=== PATIENT | female | born 1980 | race Caucasian/White ===

== ENCOUNTER 2017-03-13 00:13 | Emergency (ER) | payer BC, OTHER ==
--- NOTE | 2017-03-13 00:15 | PDOC ---
History of Present Illness - General Chief Complaint: Pain, Acute Stated Complaint: L WRIST PAIN Time Seen by Provider: 03/13/17 00:14 History Source: Patient Exam Limitations: Other (mentally challenged) - History of Present Illness Initial Comments: 03/13/17 00:18 This is a 36-year-old mentally challenged female with seizure disorder who had a seizure this afternoon and when she fell at the onset of her seizure she fell onto her outstretched left hand resulting in injury to her left wrist. Patient comes in complaining of pain to the left wrist. Patient denies any other injury did not hit her head and denies any other complaints. PAST MEDICAL HISTORY: As per history of present illness PAST SURGICAL HISTORY: no significant history FAMILY HISTORY: no pertinant history SOCIAL HISTORY: Pt lives with family and is employed. MEDICATIONS: reviewed ALLERGIES: As per nursing notes Review of Systems General: No fevers or chills, no weakness, no weight loss HEENT: No change in vision. No sore throat,. No ear pain CardioVascular: No chest pain or shortness of breath Respiratory:No cough, or wheezing. Gastrointestinal: no nausea, vomitting, diarrhea or constipation, No rectal bleeding Genitourinary: No dysuria, hematuria, or frequency Musculoskeletal: Left wrist pain post fall Neurologic: No headache, vertigo, dizziness or loss of consciousness Psychiatric: nor depression Skin: No rashes or easy bruising Endocrine: no increased thirst or abnormal weight change Allergic: no skin or latex allergy All other systems reviewed and normal GENERAL: The patient is awake, alert, and fully oriented, in no acute distress. HEAD: Normal with no signs of trauma. EYES: Pupils equal, round and reactive to light, extraocular movements intact, sclera anicteric, conjunctiva clear. EXTREMITIES: Left wrist there is swelling, deformity and tenderness on palpation. There is decreased range of motion secondary to pain and swelling. There is neurovascular distal intact. NEUROLOGICAL: Normal speech, normal gait. PSYCH: Normal mood, normal affect. SKIN: Warm, Dry, normal turgor, no rashes or lesions noted. 03/13/17 01:29 Wrist x-ray questionable ulnar styloid fracture nondisplaced Assessment and plan: This is a 36-year-old female who comes in status post fall on outstretched hand. Patient has a questionable ulnar styloid fracture. Patient put in a splint and will follow-up with an orthopedist. Past History - Past Medical History Allergies/Adverse Reactions: Allergies Allergy/AdvReac Type Severity Reaction Status Date / Time carbamazepine [From Tegretol] Allergy Severe Hives Verified 08/01/15 02:02 Penicillins Allergy Severe Rash Verified 08/01/15 02:02 Home Medications: Ambulatory Orders Clonazepam 0.75 mg PO HS 10/07/13 Clonazepam [Klonopin] 0.75 mg PO AM 10/07/13 Divalproex [Depakote -] 250 mg PO DAILY 10/07/13 Divalproex [Depakote -] 500 mg PO BID 10/07/13 LamoTRIgine [LaMICtal] 100 mg PO AM 10/07/13 LamoTRIgine [LaMICtal] 150 mg PO HS 10/07/13 Levetiracetam [Keppra] 1,000 mg PO AM 10/07/13 Levetiracetam [Keppra] 1,500 mg PO HS 10/07/13 Levetiracetam [Keppra] 500 mg PO DAILY 10/07/13 Ranitidine [Zantac -] 150 mg PO BID 10/07/13 Risperidone [Risperdal] 1 mg PO BID 10/07/13 Verapamil HCl 80 mg PO BID 10/07/13 Depakote - 500 mg PO HS 04/15/14 Anemia: No Asthma: No Cancer: No Cardiac Disorders: No CVA: No COPD: No CHF: No Dementia: Yes Diabetes: No GI Disorders: Yes (ACID REFLUX) Disorders: No HTN: No Hypercholesterolemia: No Liver Disease: No Seizures: Yes Thyroid Disease: No - Surgical History Abdominal Surgery: No Appendectomy: No Cardiac Surgery: No Cholecystectomy: No Lung Surgery: No Neurologic Surgery: Yes (PARTIAL LEFT TEMPORAL LOBE RESECTION) Orthopedic Surgery: Yes (BRANDON. ANKLE FRACTURE, RT FEMUR FX) - Immunization History Immunization Up to Date: Yes - Psycho/Social/Smoking Cessation Hx Anxiety: No Suicidal Ideation: No Smoking Status: No Smoking History: Never smoked Have you smoked in the past 12 months: No Number of Cigarettes Smoked Daily: 0 Hx Alcohol Use: No Drug/Substance Use Hx: No Substance Use Type: None Hx Substance Use Treatment: No *DC/Admit/Observation/Transfer Diagnosis at time of Disposition: Fracture of left wrist Qualifiers: Encounter type: initial encounter Fracture type: closed Qualified Code(s): S62.102A - Fracture of unspecified carpal bone, left wrist, initial encounter for closed fracture - Discharge Dispostion Disposition: HOME Condition at time of disposition: Good - Patient Instructions Additional Instructions: Wear the splint in tell you see an orthopedist. If you need an orthopedist call Dr. Agustin at [phone] this morning for an appointment. Tylenol or Motrin as needed for pain Return to the emergency department immediately with ANY new, persistent or worsening symptoms. Continue any medications as previously prescribed by your physician. You should follow up with your primary doctor as soon as possible regarding today's emergency department visit. . Please make sure your doctor reviews the results of your emergency evaluation. Thank you for coming to the Emergency Department today for your care. It was a pleasure to see you today. Please note that your evaluation is INCOMPLETE until you follow-up with your doctor.
[2017-03-13] MEDS ORDERED: IBUPROFEN 600 MG TABLET (FP) PO ONE ×2 (00:17→00:21)
[2017-03-13 00:19] VITALS: BP 131/88; PULSE 88; TEMP 97.8; BMI 25.4
== END 2017-03-13 01:42 | disposition home or self-care (01) ==
LOC: FER 00:13
PROC: 2W3FX1Z Immobilization of Left Hand using Splint (ICD-10-PCS; principal; 2017-03-13)
DX: S62.102A Fracture of unspecified carpal bone, left wrist, initial encounter for closed fracture (principal); W18.39XA Other fall on same level, initial encounter; Y93.89 Activity, other specified; Y92.9 Unspecified place or not applicable; K21.9 Gastro-esophageal reflux disease without esophagitis; F03.90 Unspecified dementia, unspecified severity, without behavioral disturbance, psychotic disturbance, mood disturbance, and anxiety; F79 Unspecified intellectual disabilities
CPT/HCPCS: 73110-TC-LT; 99283-25

== ENCOUNTER 2017-04-30 23:24 | Emergency (ER) | payer BC, OTHER ==
[2017-04-30 23:29] VITALS: BP 130/86; PULSE 18; TEMP 99; BMI 31.1
--- NOTE | 2017-04-30 23:38 | PDOC ---
History of Present Illness - General Chief Complaint: Pain Stated Complaint: LEFT ABD PAIN History Source: Patient Exam Limitations: Clinical Condition - History of Present Illness Travel History: No Initial Comments: 04/30/17 23:33 36y F hx of MR, seizure disorder presents with abdminal pain. Per brother, the pt started complaining of abdominal pain approx 4 hrs ago. Earlier in the day the pt was doing well, eating as usual, last had julia around 4-5 pm. Pt localizes pain to her L UQ/flank and that it is burning in nature. No associated fever/chills, nausae/vomiting, chest pain, cough, new diarrhea/melena /bpr, dysuria/foul smelling urine. History provided from brother as pts history is limited due to MR. Past History - Past Medical History Allergies/Adverse Reactions: Allergies Allergy/AdvReac Type Severity Reaction Status Date / Time carbamazepine [From Tegretol] Allergy Severe Hives Verified 08/01/15 02:02 Penicillins Allergy Severe Rash Verified 08/01/15 02:02 Home Medications: Ambulatory Orders Clonazepam 0.75 mg PO HS 10/07/13 Clonazepam [Klonopin] 0.75 mg PO AM 10/07/13 Divalproex [Depakote -] 250 mg PO DAILY 10/07/13 Divalproex [Depakote -] 500 mg PO BID 10/07/13 LamoTRIgine [LaMICtal] 100 mg PO AM 10/07/13 LamoTRIgine [LaMICtal] 150 mg PO HS 10/07/13 Levetiracetam [Keppra] 1,000 mg PO AM 10/07/13 Levetiracetam [Keppra] 1,500 mg PO HS 10/07/13 Levetiracetam [Keppra] 500 mg PO DAILY 10/07/13 Ranitidine [Zantac -] 150 mg PO BID 10/07/13 Risperidone [Risperdal] 1 mg PO BID 10/07/13 Verapamil HCl 80 mg PO BID 10/07/13 Depakote - 500 mg PO HS 04/15/14 Anemia: No Asthma: No Cancer: No Cardiac Disorders: No CVA: No COPD: No CHF: No Dementia: Yes Diabetes: No GI Disorders: Yes (ACID REFLUX) Disorders: No HTN: No Hypercholesterolemia: No Liver Disease: No Seizures: Yes Thyroid Disease: No - Surgical History Abdominal Surgery: No Appendectomy: No Cardiac Surgery: No Cholecystectomy: No Lung Surgery: No Neurologic Surgery: Yes (PARTIAL LEFT TEMPORAL LOBE RESECTION) Orthopedic Surgery: Yes (BRANDON. ANKLE FRACTURE, RT FEMUR FX) - Immunization History Immunization Up to Date: Yes - Psycho/Social/Smoking Cessation Hx Anxiety: No Suicidal Ideation: No Smoking Status: No Smoking History: Never smoked Have you smoked in the past 12 months: No Number of Cigarettes Smoked Daily: 0 Hx Alcohol Use: No Drug/Substance Use Hx: No Substance Use Type: None Hx Substance Use Treatment: No Review of Systems - Review of Systems Able to Perform ROS?: No (due to MR) *Physical Exam - Vital Signs Last Vital Signs Temp Pulse Resp BP Pulse Ox 99 F 18 L 18 130/86 100 04/30/17 23:26 04/30/17 23:26 04/30/17 23:26 04/30/17 23:26 04/30/17 23:26 - Physical Exam Comments: 04/30/17 23:37 GENERAL: The patient is awake, alert Nontoxic - in no acute distress. HEAD: Normocephalic, atraumatic. EYES: extraocular movements intact, sclera anicteric, conjunctiva clear. ENT: Normal voice, Moist mucous membranes. NECK: Normal range of motion, supple LUNGS: Breath sounds equal, clear to auscultation bilaterally. No wheezes, no rhonchi, no rales. HEART: Regular rate and rhythm, normal S1 and S2 without murmur, rub or gallop. ABDOMEN: Soft, mild diffuse abd pain on palpation, normoactive bowel sounds. No guarding, no rebound. L sided CVA tenderness EXTREMITIES: Normal range of motion, no edema. No clubbing or cyanosis. No cords, erythema, or tenderness. NEUROLOGICAL: No facial assymetry, Normal speech, moving all 4 extremities spontaneously and symmetrically PSYCH: Normal mood, normal affect. SKIN: Warm, Dry, normal turgor, Heart Score/ECG Review - ECG Impressions Comment:: 05/01/17 00:52 Twelve-lead EKG was performed and reviewed by me. There is normal sinus rhythm with a normal rate. Rate of 73 The axis is normal. The intervals are normal. There is normal R wave progression Nonspecific ST-T wave changes ED Treatment Course - LABORATORY CBC & Chemistry Diagram: 04/30/17 23:55 04/30/17 23:55 Medical Decision Making - Medical Decision Making 04/30/17 23:38 36y F presenting with abdominal pain, +CVA tenderness and tendenress on exam pt atherwise well appearing in no distress history limited differential includes uti, gerd, pancreatitis, consider infectius process such as diverticulitis/appendicitis will check UA, labs, ekg will reassess, if no clear diagnosis and pt still in pain, consider CT abdomen 05/01/17 02:32 pts labs reviewed noted for mild leukocytosis ct abd obtained due to persisteent pain. ct without pathology pt appears well. abd soft will dc wiht pmd fu tomorrow for reassessment. Findings: Wasn't attenuation is noted in the mid left lung bases indicative of air trapping. Correlate for asthma or COPD exacerbation. The upper abdominal viscera are normal unenhanced appearance. The adrenal glands are unremarkable. The kidneys have a normal unenhanced appearance. No calculi are seen. There is no evidence of urinary tract instruction. The gastrointestinal tract does not appear obstructed. No thickened or dilated bowel is seen. The appendix has a normal appearance. There is no mesenteric infiltration or free fluid. The uterus is anteverted and is normal unenhanced appearance. Both adnexa are unremarkable. The urinary bladder is unremarkable. No abdominal or pelvic adenopathy is seen. No acute osseous abnormalities are identified. Impression: No urinary tract calculi or evidence of urinary tract of traction seen. No inflammatory process identified in the abdomen or pelvis. No abdominal mass, adenopathy or collection seen. Mild air trapping noted in the lung bases. Correlate for asthma exacerbation. THIS DOCUMENT HAS BEEN ELECTRONICALLY SIGNED Danny Espinal M.D. 05/01/2017 02:26 LENORE Seaman Please call [facility] [phone] ([phone]) with questions. *DC/Admit/Observation/Transfer Diagnosis at time of Disposition: Abdominal pain Qualifiers: Abdominal location: left upper quadrant Qualified Code(s): R10.12 - Left upper quadrant pain - Discharge Dispostion Disposition: HOME Condition at time of disposition: Improved Admit: No - Referrals Referrals: Danny Kirk MD [Staff Physician] - - Patient Instructions Printed Discharge Instructions: DI for Abdominal Pain-Adult Additional Instructions: Return to the emergency department immediately with ANY new, persistent or worsening symptoms including worsening abdominal pain, fevers, inability to tolerate oral intake, chest pain, shortness of breath or any other concerns. Stay well hydrated. You MUST call and follow up with your doctor tomorrow for reevaluation of your symptoms. Your emergency department visit is not complete without a followup with your doctor for reevaluation. Please make sure your doctor reviews the results of your emergency evaluation. Print Language: MOZAMBICAN
[2017-04-30] MEDS ORDERED: MAG HYDROX/AL HYDROX/SIMETH 355 ML ORAL.SUSP PO ONE (23:40)
[2017-04-30] MEDS ORDERED: FAMOTIDINE 20 MG/50 ML IVPB 20 MG in PREMIX 50 IVPB ONE (23:40)
[2017-04-30] MEDS ORDERED: MAG HYDROX/AL HYDROX/SIMETH 30 ML UNIT-DOSE CUP ONE (23:45)
[2017-04-30] MEDS ORDERED: FAMOTIDINE 20 MG/50 ML IVPB 50 ML IVPB ONE (23:45)
[2017-05-01 00:49] LABS: MCH 31.9 pg (25.7-33.7); MCHC 35.1 g/dl (32.0-36.0); MEAN CELL VOLUME 90.6 fl (80-96); MEAN PLT VOLUME 8.7 fl (7.5-11.1); PLATELET COUNT 227 K/MM3 (134-434); RDW 13.2 % (11.6-15.6); WHITE BLOOD COUNT 11.3 K/mm3 (4.0-10.0)
[2017-05-01 00:53] LABS: URINE APPEARANCE CLEAR; URINE BILIRUBIN NEGATIVE (NEGATIVE); URINE BLOOD 1+ (NEGATIVE); URINE COLOR LTYELLOW; URINE GLUCOSE (UA) NEGATIVE (NEGATIVE); URINE KETONE TRACE (NEGATIVE); URINE LEUK ESTERASE TRACE (NEGATIVE); URINE NITRITE NEGATIVE (NEGATIVE); URINE PROTEIN NEGATIVE (NEGATIVE); URINE UROBILINOGEN NEGATIVE mg/dL (0.2-1.0)
[2017-05-01 01:14] LABS: ALBUMIN 3.6 g/dl (3.4-5.0); ANION GAP 11 (8-16); CALCIUM 9.9 mg/dL (8.5-10.1); CO2 29 mmol/L (21-32); GLUCOSE,RANDOM 89 mg/dL (74-106)
[2017-05-01 01:18] LABS: ALK PHOS 43 U/L (45-117); BILIRUBIN,TOTAL 0.4 mg/dL (0.2-1.0); CREATININE 0.6 mg/dL (0.55-1.02); SGOT/AST 14 U/L (15-37); SGPT/ALT 24 U/L (12-78); TOT PROT 7.8 g/dl (6.4-8.2)
[2017-05-01 01:35] LABS: URINE BACTERIA RARE /hpf (NONE SEEN); URINE MUCUS RARE; URINE RBC 2 /hpf (0-3); URINE WBC 6 /hpf (3-5)
[2017-05-01] MEDS ORDERED: morphine CARPU-JECT 2 MG/1 ML DISP.SYRIN IVPUSH ONE (01:50)
[2017-05-01] MEDS ORDERED: morphine CARPU-JECT 2 MG/1 ML DISP.SYRIN ONE (01:51)
--- NOTE | 2017-05-01 08:42 | EKG ---
Test Reason : Blood Pressure : / mmHG Vent. Rate : 073 BPM Atrial Rate : 073 BPM P-R Int : 150 ms QRS Dur : 080 ms QT Int : 396 ms P-R-T Axes : 109 030 129 degrees QTc Int : 436 ms SINUS RHYTHM NONSPECIFIC ST AND T WAVE ABNORMALITY WHEN COMPARED WITH ECG OF 07-OCT-2013 14:35, VENT. RATE HAS DECREASED BY [address] abnormalities in I and aVL has improved Confirmed by ARACELI SURESH MD ([id number]) on 05/01/2017 8:42:19 AM Referred By: MD MANZANARES Confirmed By:ARACELI SURESH MD
== END 2017-05-01 02:47 | disposition home or self-care (01) ==
LOC: FER 23:24
PROC: 3E033GC Introduction of Other Therapeutic Substance into Peripheral Vein, Percutaneous Approach (ICD-10-PCS; principal; 2017-04-30)
PROC: 3E033NZ Introduction of Analgesics, Hypnotics, Sedatives into Peripheral Vein, Percutaneous Approach (ICD-10-PCS; 2017-04-30)
DX: R10.12 Left upper quadrant pain (principal)
CPT/HCPCS: 36415; 74176-TC; 80053; 81003; 81015; 83690; 85025; 87086; 93005; 99283-25

== ENCOUNTER 2017-10-25 11:56 | Emergency (ER) | payer BC, OTHER ==
[2017-10-25 12:06] VITALS: BP 127/90; PULSE 94; TEMP 99; BMI 36.6
--- NOTE | 2017-10-25 12:19 | PDOC ---
History of Present Illness - General Chief Complaint: Pain, Acute Stated Complaint: RIGHT KNEE PAIN Time Seen by Provider: 10/25/17 12:19 History Source: Patient Exam Limitations: No Limitations - History of Present Illness Initial Comments: 37 yo F history seizure d/o with history of temporal lobe resection, presenting with RLE pain and inability to walk after a fall. No head injury. No other injuries. She c/o severe sharp pain to R thigh, knee, and lower leg. Unable to move it due to pain. Past History - Past Medical History Allergies/Adverse Reactions: Allergies Allergy/AdvReac Type Severity Reaction Status Date / Time carbamazepine [From Tegretol] Allergy Severe Hives Verified 10/25/17 11:57 Penicillins Allergy Severe Rash Verified 10/25/17 11:57 Home Medications: Ambulatory Orders Clonazepam 0.75 mg PO TID 10/07/13 Divalproex [Depakote -] 250 mg PO DAILY 10/07/13 Divalproex [Depakote -] 500 mg PO BID 10/07/13 LamoTRIgine [LaMICtal] 50 mg PO AM 10/07/13 LamoTRIgine [LaMICtal] 50 mg PO HS 10/07/13 Levetiracetam [Keppra] 1,000 mg PO DAILY 10/07/13 Levetiracetam [Keppra] 1,500 mg PO HS 10/07/13 Levetiracetam [Keppra] 500 mg PO DAILY 10/07/13 Ranitidine [Zantac -] 150 mg PO BID 10/07/13 Risperidone [Risperdal] 1 mg PO BID 10/07/13 Verapamil HCl 80 mg PO TID 10/07/13 Anemia: No Asthma: No Cancer: No Cardiac Disorders: No CVA: No COPD: No CHF: No DVT: No Dementia: Yes Diabetes: No GI Disorders: Yes (ACID REFLUX) Disorders: No HTN: No Hypercholesterolemia: No Liver Disease: No Seizures: Yes Thyroid Disease: No - Surgical History Abdominal Surgery: No Appendectomy: No Cardiac Surgery: No Cholecystectomy: No Lung Surgery: No Neurologic Surgery: Yes (PARTIAL LEFT TEMPORAL LOBE RESECTION) Orthopedic Surgery: Yes (BRANDON. ANKLE FRACTURE, RT FEMUR FX) - Immunization History Immunization Up to Date: Yes - Suicide/Smoking/Psychosocial Hx Smoking Status: No Smoking History: Never smoked Have you smoked in the past 12 months: No Number of Cigarettes Smoked Daily: 0 Hx Alcohol Use: No Drug/Substance Use Hx: No Substance Use Type: None Hx Substance Use Treatment: No Review of Systems - Review of Systems Able to Perform ROS?: Yes Comments:: GENERAL/CONSTITUTIONAL: No fever or chills. No weakness. HEAD, EYES, EARS, NOSE AND THROAT: No change in vision. No ear pain or discharge. No sore throat. CARDIOVASCULAR: No chest pain or shortness of breath. RESPIRATORY: No cough, wheezing, or hemoptysis. GASTROINTESTINAL: No nausea, vomiting, diarrhea or constipation. GENITOURINARY: No dysuria, frequency, or change in urination. MUSCULOSKELETAL: +RLE pain. No neck or back pain. SKIN: No rash NEUROLOGIC: No headache, vertigo, loss of consciousness, or change in strength/ sensation. ENDOCRINE: No increased thirst. No abnormal weight change. HEMATOLOGIC/LYMPHATIC: No anemia, easy bleeding, or history of blood clots. ALLERGIC/IMMUNOLOGIC: No hives or skin allergy. *Physical Exam - Vital Signs Last Vital Signs Temp Pulse Resp BP Pulse Ox 99.0 F 94 H 17 127/90 100 10/25/17 11:57 10/25/17 11:57 10/25/17 11:57 10/25/17 11:57 10/25/17 11:57 - Physical Exam Comments: GENERAL: Awake, alert, and fully oriented, in no acute distress HEAD: No signs of trauma EYES: PERRLA, EOMI, sclera anicteric, conjunctiva clear ENT: Auricles normal inspection, hearing grossly normal, nares patent, oropharynx clear without exudates. Moist mucosa NECK: Normal ROM, supple, no lymphadenopathy, JVD, or masses LUNGS: Breath sounds equal, clear to auscultation bilaterally. No wheezes, and no crackles HEART: Regular rate and rhythm, normal S1 and S2, no murmurs, rubs or gallops ABDOMEN: Soft, nontender, normoactive bowel sounds. No guarding, no rebound. No masses EXTREMITIES: +Tenderness to R distal femur, R knee, and R proximal lower leg. RLE externally rotated. Remainder of extremities with normal range of motion, no edema. No clubbing or cyanosis. No cords, erythema, or tenderness NEUROLOGICAL: Cranial nerves II through XII grossly intact. Normal speech, normal gait SKIN: Warm, Dry, normal turgor, no rashes or lesions noted. Procedures - Splinting Pre-Proc Neuro Vasc Exam: normal Pre-Made Type: knee immobilizer Post-Proc Neuro Vasc Exam: unchanged from pre-exam Complications: No Medical Decision Making - Medical Decision Making 10/25/17 13:58 Dr. Campos director telecommunications for ortho. Paged service, awaiting callback from DESI Jeter. 10/25/17 14:26 Case d/w DESI Jeter, who discussed with Dr. Urban. No operative management at this time. Will discuss with PMD, as patient has difficulty ambulating at baseline, cannot walk with crutches. 10/25/17 14:50 Initial plan was for admission, but then patient's brother states that he usually assists her with transfers and has done it in the past with prior injuries. Able to manage it at home. Will plan for discharge home. *DC/Admit/Observation/Transfer Diagnosis at time of Disposition: Fracture of proximal end of right tibia Qualifiers: Encounter type: initial encounter Fracture type: closed Fracture morphology: unspecified fracture morphology Qualified Code(s): S82.101A - Unspecified fracture of upper end of right tibia, initial encounter for closed fracture - Discharge Dispostion Disposition: HOME Condition at time of disposition: Stable Admit: No - Referrals - Patient Instructions Printed Discharge Instructions: DI for Shinbone Fracture - Post Discharge Activity
== END 2017-10-25 15:37 | disposition home or self-care (01) ==
LOC: FER 11:56
DX: S82.101A Unspecified fracture of upper end of right tibia, initial encounter for closed fracture (principal); W18.39XA Other fall on same level, initial encounter; Y93.89 Activity, other specified; Y92.9 Unspecified place or not applicable; F03.90 Unspecified dementia, unspecified severity, without behavioral disturbance, psychotic disturbance, mood disturbance, and anxiety; K21.9 Gastro-esophageal reflux disease without esophagitis
CPT/HCPCS: 73523-TC-FY; 73552-TC-RT-FY; 73562-TC-RT-FY; 73590-TC-RT-FY; 99283-25

== ENCOUNTER 2019-04-22 20:12 | Emergency (ER) | payer BC, OTHER ==
--- NOTE | 2019-04-22 20:27 | PDOC ---
Documentation entered by Roma Amador SCRIBE, acting as scribe for Joseph Madrigal MD. Joseph Madrigal MD: This documentation has been prepared by the miriam, Roma Amador SCRIBE, under my direction and personally reviewed by me in its entirety. I confirm that the documentation accurately reflects all work, treatment, procedures, and medical decision making performed by me. Attending Attestation - Resident Resident Name: Chance Espana - ED Attending Attestation I have performed the following: I have examined & evaluated the patient, The case was reviewed & discussed with the resident, I agree w/resident's findings & plan, Exceptions are as noted - HPI HPI: 04/22/19 20:59 The patient is a 38-year-old female with MR, refractory seizure disorder s/p temporal lobe resection, and multiple orthopedic surgeries (LT tib-fib and RT femur fractures), who BIBA s/p fall. Mother is at bedside providing history. She reports that the patient fell after experiencing a seizure 2 hours prior to presentation. She is now complaining of RT femur, RT hip, and RT knee pain. HPI is limited due to patients clinical condition. Allergies: Carbamazepine, penicillins. PCP: Dr. Mark - Physicial Exam PE: 04/22/19 20:59 agree with exam as documented by resident - Medical Decision Making 04/22/19 21:02 R sided pain after seizure/fall analgesia, xr dispo per clinical course 04/22/19 23:11 XR shows R sided intertrochanteric fx at fem neck contacted ortho 04/23/19 01:20 Details of dispo recorded in resident note For transfer to [facility]
[2019-04-22 20:47] VITALS: BMI 38.6
--- NOTE | 2019-04-22 20:49 | PDOC ---
History of Present Illness - General Chief Complaint: Pain, Acute Stated Complaint: SEIZURE Time Seen by Provider: 04/22/19 20:16 History Source: Patient Exam Limitations: No Limitations - History of Present Illness Initial Comments: 38 yo F PMH seizure disorder s/p temporal lobe resection, MR,multiple orthopedic surgeries including L tib-fib and R femur fracture, all corrected by Dr. Ordonez, p/w fall. Per mom, fell following a seizure around 2 hours ago, did not hit her head. Complaining of R femur pain, R hip pain, R knee pain. Per EMS , she got 50 of fetanyl X2. Denies CP, abdominal pain. ROS limited / MR 04/22/19 20:48 Past History - Past Medical History Allergies/Adverse Reactions: Allergies Allergy/AdvReac Type Severity Reaction Status Date / Time carbamazepine [From Tegretol] Allergy Severe Hives Verified 04/22/19 20:48 Penicillins Allergy Severe Rash Verified 04/22/19 20:48 Home Medications: Ambulatory Orders Clonazepam 0.75 mg PO BID 10/07/13 Divalproex [Depakote -] 250 mg PO DAILY 10/07/13 Divalproex [Depakote -] 500 mg PO BID 10/07/13 LamoTRIgine [LaMICtal] 50 mg PO AM 10/07/13 LamoTRIgine [LaMICtal] 50 mg PO HS 10/07/13 Levetiracetam [Keppra] 1,000 mg PO AM 10/07/13 Levetiracetam [Keppra] 1,500 mg PO HS 10/07/13 Levetiracetam [Keppra] 500 mg PO DAILY 10/07/13 Ranitidine [Zantac -] 150 mg PO BID 10/07/13 Risperidone [Risperdal] 1 mg PO DAILY 10/07/13 Verapamil HCl 80 mg PO TID 10/07/13 Anemia: No Asthma: No Cancer: No Cardiac Disorders: No CVA: No COPD: No CHF: No DVT: No Dementia: Yes Diabetes: No GI Disorders: Yes (ACID REFLUX) Disorders: No HTN: No Hypercholesterolemia: No Liver Disease: No Seizures: Yes Thyroid Disease: No Other medical history: aiyana-gastaut syndrome, - Surgical History Abdominal Surgery: No Appendectomy: No Cardiac Surgery: No Cholecystectomy: No Lung Surgery: No Neurologic Surgery: Yes (PARTIAL LEFT TEMPORAL LOBE RESECTION) Orthopedic Surgery: Yes (BRANDON. ANKLE FRACTURE, RT FEMUR FX) - Immunization History Immunization Up to Date: Yes - Suicide/Smoking/Psychosocial Hx Smoking Status: No Smoking History: Never smoked Have you smoked in the past 12 months: No Number of Cigarettes Smoked Daily: 0 Hx Alcohol Use: No Drug/Substance Use Hx: No Substance Use Type: None Hx Substance Use Treatment: No Review of Systems - Review of Systems Able to Perform ROS?: No (limited by MR) *Physical Exam - Vital Signs Last Vital Signs Temp Pulse Resp BP Pulse Ox 98.4 F 125/70 97 04/22/19 20:27 04/22/19 20:27 04/22/19 20:27 - Physical Exam General Appearance: Yes: Nourished, Moderate Distress HEENT: positive: EOMI, SARBJIT, Normal ENT Inspection, Normal Voice, Symmetrical Neck: positive: Trachea midline, Normal Thyroid, Supple Respiratory/Chest: positive: Lungs Clear, Normal Breath Sounds. negative: Chest Tender, Respiratory Distress, Accessory Muscle Use Cardiovascular: positive: Regular Rhythm, Regular Rate Gastrointestinal/Abdominal: positive: Normal Bowel Sounds, Soft. negative: Tender Musculoskeletal: negative: CVA Tenderness Extremity: positive: Other (slightly externally rotated and shortened) Integumentary: positive: Normal Color, Dry, Warm Neurologic: positive: fire support man II-XII NML intact, Fully Oriented, Alert, Normal Mood/ Affect, Normal Response, Motor Strength 5/5 ED Treatment Course - LABORATORY CBC & Chemistry Diagram: 04/22/19 23:38 04/22/19 23:38 - RADIOLOGY Radiology Studies Ordered: Category Date Time Status FOOT-RIGHT [RAD] Stat Radiology 04/22/19 20:46 Ordered HIP & PELVIS-RIGHT [RAD] Stat Radiology 04/22/19 20:46 Ordered KNEE 2 POS-RIGHT [RAD] Stat Radiology 04/22/19 20:47 Ordered LEG TIB/FIB-RIGHT [RAD] Stat Radiology 04/22/19 20:46 Ordered Medical Decision Making - Medical Decision Making X rays reviewed, appears to have R intertrochanteric hip fracture. 04/22/19 22:[address] Ordonez, he stated that he was fine with the patient seeing the orthopedist extrusion operator or going to [facility], as desired by the mom. 04/22/19 22:[address] Mcconnell, orthopedist extrusion operator. Requested pre-op labs, will plan for operation tomorrow. 04/22/19 22:[address] Mcconnell, who states that upon further review of the images, he believe it is more extensive. He recommends transfer to either [facility] or [facility]. 04/22/19 23:[address] Mcconnell, family would like patient to see Dr. Sharma at [place]. 04/22/19 23:[address] Joseph, orthopedist extrusion operator at [place]. States that the patient has a femoral neck fracture into a intertronchanteric fracture, with difficult anatomy. He actually recommends that the patient have a full hip replacement instead of getting an internal fixation, which would be likely to fail. Recommends that she be transferred to [facility]. 04/23/19 00:01 Patient signed out to Dr. Bojorquez. 04/23/19 01:[address] Louis, they will accept patient to [facility]. 04/23/19 01:17 *DC/Admit/Observation/Transfer - Referrals Referrals: Kianna Mark MD [Primary Care Provider] - - Patient Instructions - Post Discharge Activity
[2019-04-22] MEDS ORDERED: morphine CARPU-JECT 4 MG/1 ML DISP.SYRIN IVPUSH ONE (22:40)
[2019-04-22] MEDS ORDERED: morphine SULFATE 4 MG/ML VIAL ONE (22:54)
[2019-04-22 23:46] LABS: BASO % 0.5 % (0-2.0); EOS % 0.1 % (0-4.5); HEMATOCRIT 37.2 % (32.4-45.2); HEMOGLOBIN 12.7 GM/dL (10.7-15.3); MCH 31.2 pg (25.7-33.7); MCHC 34.2 g/dl (32.0-36.0); MEAN CELL VOLUME 91.2 fl (80-96); MEAN PLT VOLUME 7.7 fl (7.5-11.1); NEUT % 71.4 % (42.8-82.8); PLATELET COUNT 235 K/MM3 (134-434); RBC 4.08 M/mm3 (3.60-5.2); RDW 13.8 % (11.6-15.6); WHITE BLOOD COUNT 14.6 K/mm3 (4.0-10.0)
[2019-04-23] MEDS ORDERED: morphine CARPU-JECT 4 MG/1 ML DISP.SYRIN IVPUSH ONE (00:10)
[2019-04-23 00:13] LABS: ALBUMIN 3.4 g/dl (3.4-5.0); BILIRUBIN,TOTAL 0.2 mg/dL (0.2-1); CALCIUM 9.1 mg/dL (8.5-10.1); CREATININE 0.7 mg/dL (0.55-1.3); POTASSIUM 3.9 mmol/L (3.5-5.1); TOT PROT 7.3 g/dl (6.4-8.2)
[2019-04-23 00:23] LABS: INR 1.02 (0.83-1.09)
--- NOTE | 2019-04-23 00:56 | PDOC ---
*Physical Exam - Vital Signs Last Vital Signs Temp Pulse Resp BP Pulse Ox 98.4 F 125/70 97 04/22/19 20:27 04/22/19 20:27 04/22/19 20:27 - Physical Exam Comments: 04/24/19 23:53 Gen: Alert, NAD, comfortable-appearing. HEENT: PERRL, EOMI, MMM, NCAT. CV: Regular rate and rhythm. No murmurs, rubs, or gallops. PULM: No resp distress. CTAB, no wheezes, rales, or rhonchi. ABD: soft, NT/ND, no rebound tenderness or guarding MSK: 2+ pulses in all extremities. RLE: Slightly externally rotated and shortened. TTP of hip. 2+ pulses. Sensation to light touch intact. NEURO: Alert, mentally disabled at baseline mental status per brother. PERRL. No gross CN deficits. Strength and sensation grossly intact throughout. EXTREMITIES: No cyanosis. No clubbing. No edema. No calf tenderness. SKIN: Warm and dry. Normal capillary refill. ED Treatment Course - LABORATORY CBC & Chemistry Diagram: 04/22/19 23:38 04/22/19 23:38 - ADDITIONAL ORDERS Additional order review: Laboratory Results 04/22/19 04/22/19 04/22/19 23:38 23:38 23:38 PT with INR 12.00 INR 1.02 PTT (Actin FS) 38.7 H Sodium 141 Potassium 3.9 Chloride 104 Carbon Dioxide 30 Anion Gap 7 L BUN 12.0 Creatinine 0.7 Est GFR (CKD-EPI)AfAm 128.28 Est GFR (CKD-EPI)NonAf 110.69 Random Glucose 126 H Calcium 9.1 Total Bilirubin 0.2 AST 24 ALT 47 Alkaline Phosphatase 48 Total Protein 7.3 Albumin 3.4 04/22/19 23:38 RBC 4.08 MCV 91.2 MCHC 34.2 RDW 13.8 MPV 7.7 D Neutrophils % 71.4 D Lymphocytes % 23.0 D Monocytes % 5.0 Eosinophils % 0.1 D Basophils % 0.5 - Medications Given in the ED: ED Medications Discontinued Medications Generic Name Dose Route Start Last Admin Trade Name Freq PRN Reason Stop Dose Admin Morphine Sulfate 4 mg 04/22/19 22:40 04/22/19 23:00 Morphine Injection - IVPUSH 04/22/19 22:41 4 mg ONCE ONE Administration Medical Decision Making - Medical Decision Making 04/23/19 00:56 Sign out received from Dr Espana. "38 yo F PMH seizure disorder s/p temporal lobe resection, MR,multiple orthopedic surgeries including L tib-fib and R femur fracture, all corrected by Dr. Ordonez, p/w fall. Per mom, fell following a seizure around 2 hours ago, did not hit her head. Complaining of R femur pain, R hip pain, R knee pain. Per EMS , she got 50 of fetanyl X2. XR: R intertrochanteric hip fracture. Spoke with Dr. Mcconnell, who states that upon further review of the images, he believe it is more extensive. He recommends transfer to either [facility] or [facility]. Discussed with Dr. Joseph, orthopedist operations and maintenance supervisor at [place]. States that the patient has a femoral neck fracture into a intertronchanteric fracture, with difficult anatomy. He actually recommends that the patient have a full hip replacement instead of getting an internal fixation, which would be likely to fail. Recommends that she be transferred to [facility] in [facility]." Pending [facility] to call back for transfer. Hemodynamically stable at this time. 4 morphine 2x, last approx midnight. NPO. Pt seen and assessed at bedside. Denies pain or complaints, neurovascularly intact. Transfer to Dr Louis at [facility] approved. Transfer center called. Ambulance ETA [id number]. Risks and benefits of transfer discussed with pt and pt's brother. Transfer papers signed. Pt stable, no complaints. Ambulance arrived for transfer. Transfer to [facility]. *DC/Admit/Observation/Transfer Diagnosis at time of Disposition: Hip fracture, right - Discharge Dispostion Disposition: TRANSFER ACUTE CARE/OTHER HOSP Condition at time of disposition: Stable Decision to Admit order: No - Referrals Referrals: Kianna Mark MD [Primary Care Provider] - - Patient Instructions - Post Discharge Activity - Transfer to Acute Care Facility Receiving Facility: Other hosp. not listed ([facility]) Accepting Physician:: Dr Louis
[2019-04-23] MEDS ORDERED: morphine SULFATE 4 MG/ML VIAL ONE (00:59)
[2019-04-23 03:21] VITALS: BP 103/83; PULSE 104
[2019-04-23 06:09] VITALS: TEMP 98.7
== END 2019-04-23 04:35 | disposition short-term general hospital (02) ==
LOC: JER 20:12
PROC: 3E033NZ Introduction of Analgesics, Hypnotics, Sedatives into Peripheral Vein, Percutaneous Approach (ICD-10-PCS; principal; 2019-04-22)
DX: S72.141A Displaced intertrochanteric fracture of right femur, initial encounter for closed fracture (principal); W18.39XA Other fall on same level, initial encounter; Y93.89 Activity, other specified; Y92.018 Other place in single-family (private) house as the place of occurrence of the external cause; Y99.8 Other external cause status; G40.802 Other epilepsy, not intractable, without status epilepticus; F79 Unspecified intellectual disabilities
CPT/HCPCS: 36415; 73523-TC-FY; 73552-TC-RT-FY; 73590-TC-RT-FY; 80053; 80164; 80175; 80177; 85025; 85610; 85730; 86850; 86900; 86901; 99284-25

== ENCOUNTER 2021-01-11 11:22 | Emergency (ER) | payer BC, OTHER ==
[2021-01-11 11:42] VITALS: BP 137/99; TEMP 98.9; BMI 35.1
[2021-01-11 12:17] LABS: EPI CELLS 24 /uL (0-25.1); HYALINE CASTS 1 /uL (0-3.1); PH,URINE 5.5 (5.0-8.0); URINE APPEARANCE CLEAR; URINE BACTERIA 465 /uL (0-1359); URINE BILIRUBIN NEGATIVE (NEGATIVE); URINE COLOR YELLOW; URINE GLUCOSE (UA) NEGATIVE (NEGATIVE); URINE KETONE 1+ (NEGATIVE); URINE LEUK ESTERASE NEGATIVE (NEGATIVE); URINE NITRITE NEGATIVE (NEGATIVE); URINE PROTEIN NEGATIVE (NEGATIVE); URINE RBC 17 /uL (0-23.9); URINE UROBILINOGEN 0.2 mg/dL (0.2-1.0); URINE WBC 16 /uL (0-25.8)
[2021-01-11] MEDS ORDERED: ACETAMINOPHEN 325 MG TABLET (FP) PO ONE (12:35)
[2021-01-11] MEDS ORDERED: LACTATED RINGERS SOLUTION 1000 ML INFUS.BAG IV ONE (12:38)
[2021-01-11] MEDS ORDERED: ACETAMINOPHEN 325 MG TABLET (FP) ONE (12:56)
[2021-01-11 13:21] LABS: BASO % 0.9 % (0-2.0); EOS % 1.4 % (0-4.5); HEMATOCRIT 41.8 % (32.4-45.2); HEMOGLOBIN 14.4 GM/dL (10.7-15.3); LYMPH % 39.3 % (8-40); MCHC 34.5 g/dl (32.0-36.0); MEAN CELL VOLUME 92.7 fl (80-96); MEAN PLT VOLUME 7.6 fl (7.5-11.1); MONO % 7.7 % (3.8-10.2); NEUT % 50.7 % (42.8-82.8); PLATELET COUNT 218 K/MM3 (134-434); RBC 4.51 M/mm3 (3.60-5.2); RDW 14.4 % (11.6-15.6); WHITE BLOOD COUNT 9.5 K/mm3 (4.0-10.0)
[2021-01-11 13:47] LABS: ALBUMIN 3.5 g/dl (3.4-5.0); BLOOD UREA NITROGEN 7.1 mg/dL (7-18); CALCIUM 9.5 mg/dL (8.5-10.1)
[2021-01-11 13:51] LABS: CREATININE 0.7 mg/dL (0.55-1.3)
[2021-01-11 13:52] LABS: BILIRUBIN,TOTAL 0.2 mg/dL (0.2-1); TOT PROT 7.9 g/dl (6.4-8.2)
[2021-01-11] MEDS ORDERED: IBUPROFEN 600 MG TABLET (FP) PO ONE ×2 (14:33→15:33)
[2021-01-11] MEDS ORDERED: NITROFURANTOIN MACROCRYSTAL 50 MG CAPSULE (FP) PO SCH (15:30)
[2021-01-11] MEDS ORDERED: NITROFURANTOIN MACROCRYSTAL 50 MG CAPSULE (FP) ONE (15:53)
[2021-01-11 17:18] VITALS: PULSE 74
== END 2021-01-11 17:17 | disposition home or self-care (01) ==
LOC: JER 11:22
DX: R56.9 Unspecified convulsions (principal)
CPT/HCPCS: 36415; 70450-TC; 72125-TC; 73523-TC-FY; 73552-TC-RT-FY; 73564-TC-RT-FY; 80053; 80164; 81003; 84703; 85025; 87077; 87086; 87186; 93005; 93010; 99285-25